=== PATIENT | female | born 1955 | race Caucasian/White ===

== ENCOUNTER 2019-02-21 07:01 | Day surgery (SDC) | payer OTHER ==
[~2019-02-21 07:01] MED LIST: BENADRYL25 MG PO
== END 2019-02-21 15:25 | disposition home or self-care (01) ==
LOC: CIR.AMB 07:01
DX: C65.1 Malignant neoplasm of right renal pelvis (principal); C66.1 Malignant neoplasm of right ureter

== ENCOUNTER 2019-02-25 22:23 | Emergency (ER) | payer OTHER ==
[~2019-02-25] VITALS: Ht 152.4 cm; Wt 64.0 kg
== END 2019-02-26 09:22 | disposition home or self-care (01) ==
LOC: ER 22:23
DX: R10.31 Right lower quadrant pain (principal); R10.13 Epigastric pain

== ENCOUNTER 2019-03-31 12:00 | Day surgery (SDC) | payer OTHER ==
[~2019-03-31 12:00] MED LIST changes: +TYLENOL325 MG PO
== END 2019-03-31 23:15 | disposition home or self-care (01) ==
LOC: CIR.AMB 12:00
DX: C66.1 Malignant neoplasm of right ureter (principal)

== ENCOUNTER 2019-04-12 18:33 | Inpatient (IN) | payer OTHER ==
[~2019-04-12] VITALS: Ht 165.1 cm; Wt 140.0 kg
[2019-04-12] MEDS ORDERED: MACRODANTIN100 M1 (18:56)
== END 2019-04-15 16:37 | disposition home or self-care (01) | DRG 690 ==
LOC: ER 18:33 → SURH 04-13 09:33
PROVIDERS: ADMIT Urology
DX: N30.01 Acute cystitis with hematuria (principal); B96.5 Pseudomonas (aeruginosa) (mallei) (pseudomallei) as the cause of diseases classified elsewhere

== ENCOUNTER 2019-05-27 10:46 | Outpatient (CLI) | payer OTHER ==
[~2019-05-27 10:46] MED LIST changes: +MACRODANTIN100 M1
== END 2019-05-27 12:05 | disposition home or self-care (01) ==
LOC: NUCLEAR 10:46
DX: C65.1 Malignant neoplasm of right renal pelvis (principal); R31.0 Gross hematuria
CPT/HCPCS: 78708; A9539

== ENCOUNTER 2019-06-02 15:47 | Outpatient (CLI) | payer OTHER | END 2019-06-02 15:55 | disposition home or self-care (01) | LOC: LAB 15:47 | DX: R31.0 Gross hematuria (principal); C65.1 Malignant neoplasm of right renal pelvis ==

== ENCOUNTER 2019-06-13 09:15 | Inpatient (IN) | payer OTHER ==
[~2019-06-13] VITALS: Ht 154.9 cm; Wt 63.5 kg
== END 2019-07-02 13:37 | disposition home or self-care (01) | DRG 657 ==
LOC: SURH 06-20 05:20 → O/R 06-20 05:20 → SURG 06-20 07:00 → SURH 06-21 10:29
PROVIDERS: ADMIT Urology
PROC: 0TT64ZZ Resection of Right Ureter, Percutaneous Endoscopic Approach (ICD-10-PCS; 2019-06-20)
PROC: 02L Heart and Great Vessels, Occlusion (ICD-10-PCS; 2019-06-20)
PROC: BW21ZZZ Computerized Tomography (CT Scan) of Abdomen and Pelvis (ICD-10-PCS; 2019-06-20)
PROC: 0TT04ZZ Resection of Right Kidney, Percutaneous Endoscopic Approach (ICD-10-PCS; principal; 2019-06-20 07:00)
PROC: B54DZZZ Ultrasonography of Bilateral Lower Extremity Veins (ICD-10-PCS; 2019-06-26)
PROC: BW40ZZZ Ultrasonography of Abdomen (ICD-10-PCS; 2019-06-29)
PROC: BT2 Imaging, Urinary System, Computerized Tomography (CT Scan) (ICD-10-PCS; 2019-07-01)
DX: D30.01 Benign neoplasm of right kidney (principal); I97.52 Accidental puncture and laceration of a circulatory system organ or structure during other procedure

== ENCOUNTER → 2019-08-05 09:11 | Outpatient (CLI) | payer OTHER | END | disposition home or self-care (01) | LOC: LAB 09:11 | DX: R31.0 Gross hematuria (principal); C65.1 Malignant neoplasm of right renal pelvis ==

== ENCOUNTER 2019-08-06 09:50 | Outpatient (CLI) | payer OTHER | END 2019-08-06 10:02 | disposition home or self-care (01) | LOC: MRI 09:50 | DX: R31.1 Benign essential microscopic hematuria (principal) | CPT/HCPCS: 74182 ==

== ENCOUNTER 2019-12-31 08:08 | Outpatient (CLI) | payer OTHER | END 2019-12-31 08:16 | disposition home or self-care (01) | LOC: MRI 08:08 | PROVIDERS: ATTEND Urology | DX: C65.1 Malignant neoplasm of right renal pelvis (principal) | CPT/HCPCS: 72196; 74182 ==

== ENCOUNTER 2019-12-31 08:42 | Outpatient (CLI) | payer OTHER | END 2019-12-31 09:36 | disposition home or self-care (01) | LOC: LAB 08:42 | PROVIDERS: ATTEND Radiology Diagnostic Radiology | DX: C65.1 Malignant neoplasm of right renal pelvis (principal); N20.0 Calculus of kidney; R31.0 Gross hematuria; N30.00 Acute cystitis without hematuria; R31.1 Benign essential microscopic hematuria ==

== ENCOUNTER 2022-03-21 14:33 | Outpatient (CLI) | payer OTHER | END 2022-03-21 14:51 | disposition home or self-care (01) | LOC: LAB 14:33 | PROVIDERS: ATTEND Internal Medicine Gastroenterology | DX: K21.9 Gastro-esophageal reflux disease without esophagitis (principal); D13.4 Benign neoplasm of liver ==

== ENCOUNTER 2022-03-27 08:25 | Outpatient (CLI) | payer OTHER | END 2022-03-27 08:33 | disposition home or self-care (01) | LOC: MRI 08:25 | PROVIDERS: ATTEND Urology | DX: C65.1 Malignant neoplasm of right renal pelvis (principal); R31.0 Gross hematuria | CPT/HCPCS: 72196; 74182 ==

== ENCOUNTER 2022-09-21 07:45 | Outpatient (CLI) | payer OTHER | END 2022-09-21 07:53 | disposition home or self-care (01) | LOC: MRI 07:45 | PROVIDERS: ATTEND Urology | DX: R31.1 Benign essential microscopic hematuria (principal); C64.1 Malignant neoplasm of right kidney, except renal pelvis | CPT/HCPCS: 72196; 74182 ==

== ENCOUNTER 2023-10-09 15:32 | Outpatient (CLI) | payer OTHER ==
[2023-10-09 16:19] LABS: CREATININE SERUM 1.21 mg/dL (0.55-1.02)
== END 2023-10-09 23:00 | disposition home or self-care (01) ==
LOC: EDBD 15:32 → LAB 15:32
PROVIDERS: ATTEND Radiology Diagnostic Radiology
DX: R10.30 Lower abdominal pain, unspecified (principal)

== ENCOUNTER 2023-10-11 07:29 | Outpatient (CLI) | payer OTHER | END 2023-10-11 07:33 | disposition home or self-care (01) | LOC: MRI 07:29 | PROVIDERS: ATTEND Urology | DX: C65.1 Malignant neoplasm of right renal pelvis (principal) | CPT/HCPCS: 72197; 74183; Q9965 ==